=== PATIENT | female | born 1950 | race Caucasian/White ===

== ENCOUNTER 2019-09-11 19:26 | Emergency (ER) | payer BC, OTHER ==
[~2019-09-11] VITALS: Ht 165.1 cm; Wt 106.6 kg
[~2019-09-11 19:26] MED LIST: BENADRYL25 MG PO; COENZYME Q1050 M1; DIAZEPAM 5 MG5 M1 PO; DIOVAN HCT 3201 EAC1 PO; DIOVAN160 MG PO; DURAGESIC1 EAC2 TD; ERGOCALCIFEROL PO; FENTANYL PATCH75 MCG TP; FLEXERIL PO; KLOR-CON 10 ER10 MEQ PO; LASIX 20 MG TAB20 MG; LOPRESSOR25 PO; OXYCODONE HCL15 MG PO; PRILOSEC 20 MG20 MG PO; SENNA PO; SYNTHROID50 MCG PO; TRAMADOL 50 MG50 MG PO; VERAPAMIL ER180 MG PO; VITAMIN D400 UNI1 PO; XANAX 0.5 MG0.5 M1 PO; ZANAFLEX2 M1 PO; ZANAFLEX4 M1 PO; ZOLOFT 50 MG TA50 M1 PO
[2019-09-11 21:17] VITALS: BP 199/90
== END 2019-09-11 21:17 | disposition home or self-care (01) ==
LOC: ER 19:26
DX: M25.561 Pain in right knee (principal); Z88.2 Allergy status to sulfonamides; Z88.6 Allergy status to analgesic agent